=== PATIENT | male | born 1985 | race American Indian/Alaskan Native ===

== ENCOUNTER 2017-01-31 00:44 | Emergency (ER) | payer MEDICAID ==
[2017-01-31 00:45] VITALS: BMI 26.4
[2017-01-31 01:02] VITALS: TEMP 97.9; O2SAT 96
--- NOTE | 2017-01-31 03:03 | C.PDOC ---
History Of Present Illness 31 y/o male brought to ED for public intoxication. Patient admits to drinking alcohol. Denies any pain or other complaints at this time. H/o of frequent ETOH intoxication noted. Time Seen by Provider: 01/31/17 02:46 Chief Complaint (Nursing): Substance Abuse History Per: Patient History/Exam Limitations: no limitations Current Symptoms Are (Timing): Still Present Suicide/Self Injury Attempted (Context): None Modifying Factor(s): Alcohol Associated Symptoms: denies: Suicidal Thoughts, Suicidal Plan Recent travel outside of the [place]: No Past Medical History Reviewed: Historical Data, Nursing Documentation, Vital Signs Vital Signs: Last Vital Signs Temp 97.9 F 01/31/17 03:29 Pulse 87 01/31/17 03:29 Resp 16 01/31/17 03:29 BP 127/68 01/31/17 03:29 Pulse Ox 96 01/31/17 03:29 - Medical History PMH: Anxiety, Depression - [facility] Procedures ALCOHOL DETOXIFICATION (09/27/13) INDIVID PSYCHOTHERAP NEC (02/23/15) MEDICATION MANAGEMENT (07/18/16) OTHER GROUP THERAPY (02/23/15) PSYCHIA INTERV/EVAL NEC (02/21/15) Family History: States: Unknown Family Hx - Social History Hx Tobacco Use: Yes Hx Alcohol Use: Yes Hx Substance Use: No - Immunization History Hx Tetanus Toxoid Vaccination: No Hx Influenza Vaccination: No Hx Pneumococcal Vaccination: No Review Of Systems Except As Marked, All Systems Reviewed And Found Negative. Constitutional: Negative for: Fever, Chills Cardiovascular: Negative for: Chest Pain Respiratory: Negative for: Cough, Shortness of Breath, Wheezing Gastrointestinal: Negative for: Nausea, Vomiting, Abdominal Pain Skin: Negative for: Rash Neurological: Negative for: Headache, Dizziness Physical Exam - Physical Exam Appears: Non-toxic, No Acute Distress Skin: Normal Color, Warm, Dry Head: Atraumatic, Normacephalic Eye(s): bilateral: Normal Inspection, EOMI Nose: Normal Oral Mucosa: Moist Chest: Symmetrical Cardiovascular: Rhythm Regular, No Murmur Respiratory: No Rales, No Rhonchi, No Wheezing Gastrointestinal/Abdominal: Soft, No Tenderness Back: Normal Inspection Extremity: Normal ROM, Capillary Refill (< 2 sec.) Neurological/Psych: Oriented x3, Normal Speech, Normal Cognition ED Course And Treatment O2 Sat by Pulse Oximetry: 96 (RA) Pulse Ox Interpretation: Normal Progress Note: Pt requests discharge. Steady gait. Clinically sober. No complaints. Pt was seen and evaluated by Dr Rodriguez who discharge the pt. 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 - Scribe Statement The provider has reviewed the documentation as recorded by the Scribjeronimo headley All medical record entries made by the Lester were at my direction and personally dictated by me. I have reviewed the chart and agree that the record accurately reflects my personal performance of the history, physical exam, medical decision making, and the department course for this patient. I have also personally directed, reviewed, and agree with the discharge instructions and disposition.
[2017-01-31 03:30] VITALS: BP 127/68; PULSE 87; RESP 16
== END 2017-01-31 04:08 | disposition home or self-care (01) ==
LOC: C.ER 00:44
DX: F10.10 Alcohol abuse, uncomplicated (principal)

== ENCOUNTER 2017-01-31 14:44 | Observation (INO) | payer MEDICAID ==
[2017-01-31 14:44] VITALS: BMI 26.4
[2017-01-31 15:51] LABS: BASO # 0.1 K/uL (0.0-0.2); BASO % 1.4 % (0.0-2.0); EOS # 0.2 K/uL (0.0-0.7); EOS % 3.3 % (0.0-4.0); HEMATOCRIT 42.5 % (35.0-51.0); LYMPH # 2.2 K/uL (1.0-4.3); LYMPH % 43.4 % (20.0-40.0); MEAN CORPUSCULAR HEMOGLOBIN 28.5 pg (27.0-31.0); MEAN PLATELET VOLUME 8.5 fL (7.2-11.7); MONO # 0.3 K/uL (0.0-0.8); MONO % 5.6 % (0.0-10.0); NRBC % 0.2 % (0.0-2.0); RED CELL DISTRIBUTION WIDTH 18.6 % (11.5-14.5)
[2017-01-31 15:53] LABS: MEAN CELL VOLUME 86.2 fL (80.0-94.0)
[2017-01-31 16:06] LABS: CHLORIDE 105 mmol/L (98-107); POTASSIUM 4.3 mmol/L (3.6-5.2); SODIUM 147 mmol/L (132-148)
[2017-01-31 16:08] LABS: AST/SGOT 65 U/L (17-59); BILIRUBIN,TOTAL 0.8 mg/dL (0.2-1.3); CARBON DIOXIDE 28 mmol/L (22-30); GFR AFRICAN-AMERICAN > 60
[2017-01-31 16:09] LABS: ALB/GLOB RATIO 1.1 (1.0-2.1); ALKALINE PHOSPHATASE 57 U/L (38-126); ALT/SGPT 47 U/L (21-72); BLOOD UREA NITROGEN 8 mg/dL (9-20); CALCIUM 9.2 mg/dl (8.6-10.4); GLUCOSE,RANDOM 94 mg/dL (75-110); TOTAL PROTEIN 8.3 g/dL (6.3-8.3)
[2017-01-31 16:33] LABS: ALCOHOL SERUM 386 mg/dl (0-10)
--- NOTE | 2017-01-31 17:09 | C.PDOC ---
History Of Present Illness <Rose Vera - Last Filed: 01/31/17 18:38> <Jude Infante - Last Filed: 02/01/17 04:39> 31 y/o male with Hx of chronic ETOH abuse presents to ED with suicidal ideation. Patient states he has been drinking and wants to kill himself. Patient denies hallucinations, Homicidal ideation, numbness or any other complaints at this time. (Rose Vera) History Per: Patient History/Exam Limitations: no limitations Onset/Duration Of Symptoms: Days Current Symptoms Are (Timing): Still Present Modifying Factor(s): Alcohol <Rose Vera - Last Filed: 01/31/17 18:38> <Jude Infante - Last Filed: 02/01/17 04:39> Time Seen by Provider: 01/31/17 15:11 Chief Complaint (Nursing): Psychiatric Evaluation Past Medical History Reviewed: Historical Data, Nursing Documentation, Vital Signs - Medical History PMH: Anxiety, Depression Family History: States: Unknown Family Hx - Social History Hx Tobacco Use: Yes Hx Alcohol Use: Yes Hx Substance Use: No - Immunization History Hx Tetanus Toxoid Vaccination: No Hx Influenza Vaccination: Yes Hx Pneumococcal Vaccination: No <Rose Vera - Last Filed: 01/31/17 18:38> Review Of Systems Except As Marked, All Systems Reviewed And Found Negative. Gastrointestinal: Negative for: Nausea, Vomiting, Diarrhea Skin: Negative for: Rash Neurological: Negative for: Weakness, Numbness, Dizziness Psych: Positive for: Suicidal ideation. Negative for: Anxiety <Rose Vera - Last Filed: 01/31/17 18:38> Physical Exam - Physical Exam Appears: Agitated, Other (Alcohol on Breath) Skin: Warm Head: Atraumatic, Normacephalic Eye(s): bilateral: PERRL, EOMI Oral Mucosa: Moist Neck: Normal ROM, Supple Chest: Symmetrical, No Tenderness Cardiovascular: Rhythm Regular, No Friction Rub, No Murmur Respiratory: Normal Breath Sounds, No Rales, No Rhonchi, No Wheezing Gastrointestinal/Abdominal: Soft, No Tenderness, No Guarding, No Rebound Back: Normal Inspection, No Vertebral Tenderness, No Paraspinal Tenderness Extremity: Normal ROM, No Tenderness, Capillary Refill (<2 seconds), No Swelling Neurological/Psych: Oriented x3, Normal Cranial Nerves, Normal Motor, Other ( Pressured Speech) Gait: Steady <Rose Vera - Last Filed: 01/31/17 18:38> ED Course And Treatment - Laboratory Results Result Diagrams: 01/31/17 15:45 01/31/17 15:45 O2 Sat by Pulse Oximetry: 97 (RA) Pulse Ox Interpretation: Normal <Rose Vera - Last Filed: 01/31/17 18:38> - Laboratory Results Result Diagrams: 01/31/17 15:45 01/31/17 15:45 <Jude Infante R - Last Filed: 02/01/17 04:39> Medical Decision Making <Rose Vera - Last Filed: 01/31/17 18:38> <Salome Infanteel R - Last Filed: 02/01/17 04:39> Medical Decision Making: The patient has alcohol level > 300, will observe for sobriety. 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 - Scribe Statement The provider has reviewed the documentation as recorded by the Scribe <Rose Vera - Last Filed: 01/31/17 18:38> <Jude Infante R - Last Filed: 02/01/17 04:39> - Scribe Statement Georgia Gonzalez All medical record entries made by the Scribe were at my direction and personally dictated by me. I have reviewed the chart and agree that the record accurately reflects my personal performance of the history, physical exam, medical decision making, and the department course for this patient. I have also personally directed, reviewed, and agree with the discharge instructions and disposition. (Rose Vera) Physician Patient Turnover Patient Signed Over To: Jude Infante Handoff Comments: Pending sobriety and disposition <Rose Vera - Last Filed: 01/31/17 18:38>
[2017-01-31 19:43] LABS: RBC URINE < 1 /hpf (0-3); URINE BILIRUBIN NEGATIVE (NEGATIVE); URINE BLOOD NEGATIVE (NEGATIVE); URINE COLOR Yellow (YELLOW); URINE GLUCOSE (UA) NORMAL (Normal); URINE KETONE NEGATIVE (NEGATIVE); URINE LEUKOCYTE ESTERASE NEG Leu/uL (Negative); URINE PROTEIN NEGATIVE (NEGATIVE); URINE UROBILINOGEN NORMAL mg/dL (0.2-1.0); WBC URINE < 1 /hpf (0-5)
[2017-02-01 04:45] VITALS: BP 146/71; PULSE 68; RESP 14; TEMP 98.3; O2SAT 96
== END 2017-02-01 04:39 | disposition home or self-care (01) ==
LOC: C.ER 14:44 → C.9OBSV 02-01 02:28
PROVIDERS: ADMIT Emergency Medicine; ATTEND Emergency Medicine
DX: F10.120 Alcohol abuse with intoxication, uncomplicated (principal); R45.851 Suicidal ideations; Z87.891 Personal history of nicotine dependence; F41.8 Other specified anxiety disorders; Y90.8 Blood alcohol level of 240 mg/100 ml or more; F19.10 Other psychoactive substance abuse, uncomplicated
CPT/HCPCS: 36415; 80053; 80320; 80324; 80345; 80346; 80349; 80353; 80358; 80361; 81001; 83992; 85025; 99285; G0378